=== PATIENT | female | born 1975 | race Caucasian/White ===

== ENCOUNTER 2018-07-29 05:33 | Inpatient (IN) | payer OTHER ==
[2018-07-29] MEDS ORDERED: NEOSTIGMINE 3 MG/3 ML SYRINGE (06:31)
[2018-07-29] MEDS ORDERED: FENTAnyl 50 MCG/ML VIAL (06:31)
[2018-07-29] MEDS ORDERED: GLYCOPYRROLATE 0.4 MG INJ (06:31)
[2018-07-29] MEDS ORDERED: MIDAZOLAM 1 MG/ML 2 ML INJ (06:31)
[2018-07-29] MEDS ORDERED: PROPOFOL 20 ML (06:31)
[2018-07-29] MEDS ORDERED: ROCURONIUM 50 MG INJ (06:31)
[2018-07-29] MEDS ORDERED: LIDOCAINE 2% (SDV) 5 ML INJ (06:31)
[2018-07-29] MEDS ORDERED: morphine SULFATE/PF (10 MG/10 ML) INJ (06:33)
[2018-07-29] MEDS ORDERED: ONDANSETRON 4 MG INJ ×2 (06:34→08:46)
[2018-07-29] MEDS ORDERED: DEXAMETHASONE 4 MG/ML 1 ML INJ (06:34)
[2018-07-29] MEDS ORDERED: VANCOMYCIN 1 GM (PMX) 250 ML (06:55)
[2018-07-29] MEDS ORDERED: SUCCINYLCHOLINE CHLORIDE 100 MG/5 ML SYG IV (07:00)
[2018-07-29] MEDS: VANCOMYCIN 1 GM (PMX) 250 ML IVPB (07:05)
[2018-07-29] MEDS ORDERED: ONDANSETRON 4 MG INJ IV (08:00)
[2018-07-29] MEDS ORDERED: EPHEDrine SULFATE 50 MG/5 ML SYG IV (08:00)
[2018-07-29] MEDS ORDERED: FENTAnyl 50 MCG/ML VIAL IV ×3 (08:00)
[2018-07-29] MEDS ORDERED: HYDROmorphONE 1 MG/5 ML IV SYRINGE IV ×2 (08:00)
[2018-07-29] MEDS ORDERED: MIDAZOLAM 1 MG/ML 2 ML INJ IV (08:00)
[2018-07-29] MEDS ORDERED: MEPERIDINE 25 MG INJ IV (08:00)
[2018-07-29] MEDS ORDERED: hydrALAzine 20 MG INJ IV (08:00)
[2018-07-29] MEDS ORDERED: LABETALOL HCL 20MG INJ IV (08:00)
[2018-07-29] MEDS ORDERED: DIPHENHYDRAMINE 50 MG INJ IV (08:00)
[2018-07-29] MEDS ORDERED: METOCLOPRAMIDE 10 MG INJ IV (08:00)
[2018-07-29] MEDS ORDERED: METOCLOPRAMIDE 10 MG INJ (08:46)
[2018-07-29] MEDS: HYDROmorphONE 1 MG/5 ML IV SYRINGE IV ×2 (09:46→10:10)
[2018-07-29] MEDS ORDERED: HYDROmorphONE 1 MG/ML SYG IV (15:00)
[2018-07-29] MEDS: HYDROmorphONE 2 MG/ML SYG IV ×2 (15:14→20:08)
[2018-07-29] MEDS: DEXTROSE 5%-LR 1,000 ML IV (23:31)
[2018-07-30] MEDS: ONDANSETRON 4 MG INJ IV (03:20)
[2018-07-30 05:14] LABS: ADD MAN DIFF? NO
[2018-07-30 05:16] LABS: WHITE BLOOD COUNT 9.7 10^3/ul (4.8-10.8)
[2018-07-30 05:16] LABS: BASOPHILS % 0.2 % (0.0-2.0); EOSINOPHILS % 0.1 % (0.0-7.0); HEMATOCRIT 33.3 % (37.0-47.0); HEMOGLOBIN 11.3 g/dl (12.0-16.0); LYMPHOCYTES # 1.2 10^3/ul (0.8-2.9); LYMPHOCYTES % 12.1 % (15.0-51.0); MEAN CORPUSCULAR HEMOGLOBIN 29.8 pg (29.0-33.0); MEAN CORPUSCULAR HGB CONC 33.9 g/dl (32.0-37.0); MEAN CORPUSCULAR VOLUME 87.9 fl (82.0-101.0); MEAN PLATELET VOLUME 9.9 fl (7.4-10.4); MONOCYTES % 9.8 % (0.0-11.0); NEUTROPHIL # 7.5 10^3/ul (1.6-7.5); NEUTROPHILS % 77.5 % (39.0-77.0); PLATELET COUNT 268 10^3/UL (140-415); RED BLOOD COUNT 3.79 10^6/ul (4.20-5.40); RED CELL DISTRIBUTION WIDTH 12.9 % (11.5-14.5)
[2018-07-30] MEDS: BISACODYL 10 MG SUPP PR ×2 (05:21→17:49)
[2018-07-30] MEDS: MAGNESIUM HYDROXIDE 30ML CUP PO ×2 (05:21→17:49)
[2018-07-30] MEDS: HYDROmorphONE 2 MG/ML SYG IV ×2 (05:23→09:20)
[2018-07-30 05:30] LABS: ALANINE AMINOTRANSFERASE 21 IU/L (13-69); ALBUMIN 3.6 g/dl (3.3-4.9); ALBUMIN/GLOBULIN RATIO 1.44; ALKALINE PHOSPHATASE 43 IU/L (42-121); ANION GAP 8 (5-13); ASPARTATE AMINO TRANSFERASE 26 IU/L (15-46); BILIRUBIN,INDIRECT 0.5 mg/dl (0-1.1); BILIRUBIN,TOTAL 0.5 mg/dl (0.2-1.3); BLOOD UREA NITROGEN 8 mg/dl (7-20); CALCIUM 8.6 mg/dl (8.4-10.2); CARBON DIOXIDE 26 mmol/L (21-31); CHLORIDE 105 mmol/L (97-110); CREATININE 0.63 mg/dl (0.44-1.00); Estimated GFR > 60 mL/min (>60); GLUCOSE 129 mg/dl (70-220); POTASSIUM 4.4 mmol/L (3.5-5.1); SODIUM 139 mmol/L (135-144); TOTAL PROTEIN 6.1 g/dl (6.1-8.1)
[2018-07-30] MEDS: DEXTROSE 5%-LR 1,000 ML IV ×3 (06:30→17:58)
[2018-07-30] MEDS ORDERED: HYDROCODONE/APAP (5/325) TAB PO (10:00)
[2018-07-30] MEDS ORDERED: IBUPROFEN 800 MG TAB PO (10:00)
[2018-07-30] MEDS: DIPHENHYDRAMINE 50 MG INJ IV (15:50)
[2018-07-30] MEDS ORDERED: MAGNESIUM HYDROXIDE 30ML CUP PO (17:00)
[2018-07-30] MEDS: HYDROCODONE/APAP (5/325) TAB PO (17:49)
[2018-07-31 05:15] LABS: ADD MAN DIFF? NO
[2018-07-31 05:21] LABS: BASOPHILS % 0.2 % (0.0-2.0); EOSINOPHILS # 0.1 10^3/ul (0.0-0.5); EOSINOPHILS % 0.7 % (0.0-7.0); HEMATOCRIT 32.7 % (37.0-47.0); HEMOGLOBIN 10.8 g/dl (12.0-16.0); LYMPHOCYTES # 1.4 10^3/ul (0.8-2.9); LYMPHOCYTES % 14.3 % (15.0-51.0); MEAN CORPUSCULAR HEMOGLOBIN 29.5 pg (29.0-33.0); MEAN CORPUSCULAR VOLUME 89.3 fl (82.0-101.0); MEAN PLATELET VOLUME 10.1 fl (7.4-10.4); MONOCYTES % 9.6 % (0.0-11.0); NEUTROPHIL # 7.5 10^3/ul (1.6-7.5); NEUTROPHILS % 74.7 % (39.0-77.0); PLATELET COUNT 262 10^3/UL (140-415); RED BLOOD COUNT 3.66 10^6/ul (4.20-5.40); RED CELL DISTRIBUTION WIDTH 12.8 % (11.5-14.5)
[2018-07-31] MEDS: BISACODYL 10 MG SUPP PR (05:21)
[2018-07-31] MEDS: MAGNESIUM HYDROXIDE 30ML CUP PO (05:21)
[2018-07-31] MEDS: DEXTROSE 5%-LR 1,000 ML IV (07:26)
== END 2018-07-31 19:20 | disposition home or self-care (01) | DRG 743 ==
LOC: REC 05:33 → MS1 10:09
PROVIDERS: Obstetrics & Gynecology
PROC: 0UT90ZZ Resection of Uterus, Open Approach (ICD-10-PCS; principal; 2018-07-29 07:30)
DX: D25.9 Leiomyoma of uterus, unspecified (principal); G89.29 Other chronic pain; R10.2 Pelvic and perineal pain; N92.0 Excessive and frequent menstruation with regular cycle
CPT/HCPCS: 80053; 84702; 85025; 86850; 86900; 86901; 87086; 88305